=== PATIENT | female | born 1990 | race Caucasian/White ===

== ENCOUNTER → 2018-04-22 | Outpatient (CLI) | payer MEDICAID ==
[~2018-04-22] MED LIST: AMPICILLIN 1 GM/NS (PMX) 50 ML IV; BUTORPHANOL 2 MG INJ IV; CARBOPROST 250 MCG INJ IM; IBUPROFEN 600 MG TAB PO; LACTATED RINGER'S 1,000 ML IV; LIDOCAINE 1% (MPF) 30 ML INJ INJ; METHYLERGONOVINE 0.2 MG INJ IM; MISOPROSTOL 200 MCG TAB PR; OXYTOCIN 30 UNITS/LR 500 ML IV
[2018-04-22] MEDS: LACTATED RINGER'S 1,000 ML IV* (21:39)
[2018-04-22] MEDS: AMPICILLIN 2 GM/NS (PMX) 100 ML IV (21:39)
[2018-04-22 21:59] LABS: ABNORMAL IP MESSAGE 1; ADD MAN DIFF? NO; BASOPHILS % 0.3 % (0.0-2.0); EOSINOPHILS # 0.1 10^3/ul (0.0-0.5); HEMATOCRIT 35.6 % (37.0-47.0); HEMOGLOBIN 11.9 g/dl (12.0-16.0); LYMPHOCYTES # 2.9 10^3/ul (0.8-2.9); LYMPHOCYTES % 29.7 % (15.0-51.0); MEAN CORPUSCULAR HEMOGLOBIN 30.7 pg (29.0-33.0); MEAN CORPUSCULAR HGB CONC 33.4 g/dl (32.0-37.0); MEAN CORPUSCULAR VOLUME 91.8 fl (82.0-101.0); MONOCYTES % 10.4 % (0.0-11.0); NEUTROPHIL # 5.7 10^3/ul (1.6-7.5); PLATELET COUNT 119 10^3/UL (140-415); RED BLOOD COUNT 3.88 10^6/ul (4.20-5.40); RED CELL DISTRIBUTION WIDTH 12.6 % (11.5-14.5)
[2018-04-22 21:59] LABS: WHITE BLOOD COUNT 9.9 10^3/ul (4.8-10.8)
[2018-04-22 22:02] LABS: MEAN PLATELET VOLUME 13.3 fl (7.4-10.4); POSITIVE DIFF @See below
[2018-04-22 22:32] LABS: INR 0.85; PROTIME 11.7 Sec (11.9-14.9); PT RATIO 0.9
[2018-04-22 22:33] LABS: PARTIAL THROMBOPLASTIN TIME 24.4 Sec (23.0-35.0)
[2018-04-22 22:50] LABS: HEPATITIS B SURFACE ANTIGEN NEGATIVE (NEGATIVE)
[2018-04-23] MEDS: LACTATED RINGER'S 1,000 ML IV* ×2 (05:50→13:55)
[2018-04-23 14:59] LABS: RAPID PLASMA REAGIN NONREACTIVE (NR)
== END | disposition home or self-care (01) ==
LOC: OBT 16:32 → L-D 16:35 → OBT 21:19 → L-D 21:20
DX: O47.1 False labor at or after 37 completed weeks of gestation (principal); Z3A.38 38 weeks gestation of pregnancy
CPT/HCPCS: 76818; 85025; 85610; 85730; 86592; 86850; 86900; 86901; 87340

== ENCOUNTER 2018-05-02 03:35 | Inpatient (IN) | payer MEDICAID ==
[2018-05-02] MEDS ORDERED: LIDOCAINE 0.5% (SDV) 50 ML INJ (03:44)
[2018-05-02] MEDS ORDERED: OXYTOCIN 30 UNITS/LR 500 ML IV ×3 (04:00→04:30)
[2018-05-02] MEDS ORDERED: LIDOCAINE 1% (MPF) 30 ML INJ INJ (04:00)
[2018-05-02] MEDS ORDERED: METHYLERGONOVINE 0.2 MG INJ IM ×2 (04:00→04:30)
[2018-05-02] MEDS ORDERED: MISOPROSTOL 200 MCG TAB PR ×2 (04:00→04:30)
[2018-05-02] MEDS ORDERED: CARBOPROST 250 MCG INJ IM ×2 (04:00→04:30)
[2018-05-02] MEDS ORDERED: LACTATED RINGER'S 1,000 ML IV* (04:07)
[2018-05-02] MEDS: LACTATED RINGER'S 1,000 ML IV* ×2 (04:15→20:00)
[2018-05-02] MEDS: OXYTOCIN 30 UNITS/LR 500 ML IV ×2 (04:18→04:19)
[2018-05-02] MEDS ORDERED: MAGNESIUM HYDROXIDE 30ML CUP PO (04:30)
[2018-05-02] MEDS ORDERED: LANOLIN 7 GM TUBE TOP (04:30)
[2018-05-02] MEDS ORDERED: ONDANSETRON 4 MG INJ IV (04:30)
[2018-05-02] MEDS ORDERED: ACETAMINOPHEN 325 MG TAB PO ×2 (04:30)
[2018-05-02] MEDS ORDERED: DIBUCAINE 1% 30 GM OINT PR (04:30)
[2018-05-02 04:55] LABS: ADD MAN DIFF? NO
[2018-05-02 05:06] LABS: BASOPHIL # 0.1 10^3/ul (0.0-0.1); BASOPHILS % 0.5 % (0.0-2.0); EOSINOPHILS # 0.1 10^3/ul (0.0-0.5); EOSINOPHILS % 0.7 % (0.0-7.0); HEMATOCRIT 37.4 % (37.0-47.0); HEMOGLOBIN 12.6 g/dl (12.0-16.0); LYMPHOCYTES # 4.9 10^3/ul (0.8-2.9); MEAN CORPUSCULAR HEMOGLOBIN 30.7 pg (29.0-33.0); MEAN CORPUSCULAR HGB CONC 33.7 g/dl (32.0-37.0); MONOCYTE # 0.9 10^3/ul (0.3-0.9); MONOCYTES % 6.5 % (0.0-11.0); NEUTROPHIL # 7.5 10^3/ul (1.6-7.5); NEUTROPHILS % 54.8 % (39.0-77.0); PLATELET COUNT 134 10^3/UL (140-415); RED BLOOD COUNT 4.11 10^6/ul (4.20-5.40); RED CELL DISTRIBUTION WIDTH 12.7 % (11.5-14.5)
[2018-05-02 05:06] LABS: WHITE BLOOD COUNT 13.7 10^3/ul (4.8-10.8)
[2018-05-02 05:26] LABS: INR 0.91; PROTIME 12.3 Sec (11.9-14.9)
[2018-05-02 05:27] LABS: PARTIAL THROMBOPLASTIN TIME 23.6 Sec (23.0-35.0)
[2018-05-02 06:08] LABS: HEPATITIS B SURFACE ANTIGEN NEGATIVE (NEGATIVE)
[2018-05-02] MEDS: IBUPROFEN 600 MG TAB PO ×3 (07:07→23:46)
[2018-05-02] MEDS: BENZOCAINE 20% 56 ML SPRAY TOP (13:14)
[2018-05-02] MEDS: WITCH HAZEL/GLYCERIN PAD PR (13:14)
[2018-05-02 16:31] LABS: RAPID PLASMA REAGIN NONREACTIVE (NR)
[2018-05-02] MEDS: SENNA/DOCUSATE NA (8.6MG/50MG) TAB PO (23:46)
[2018-05-03] MEDS: LACTATED RINGER'S 1,000 ML IV* (04:00)
[2018-05-03 08:29] LABS: ADD MAN DIFF? NO
[2018-05-03 08:35] LABS: BASOPHILS % 0.4 % (0.0-2.0); EOSINOPHILS # 0.1 10^3/ul (0.0-0.5); EOSINOPHILS % 1.6 % (0.0-7.0); HEMATOCRIT 31.8 % (37.0-47.0); HEMOGLOBIN 10.6 g/dl (12.0-16.0); LYMPHOCYTES # 2.2 10^3/ul (0.8-2.9); MEAN CORPUSCULAR HEMOGLOBIN 30.8 pg (29.0-33.0); MEAN CORPUSCULAR HGB CONC 33.3 g/dl (32.0-37.0); MEAN CORPUSCULAR VOLUME 92.4 fl (82.0-101.0); MEAN PLATELET VOLUME 12.9 fl (7.4-10.4); MONOCYTE # 0.7 10^3/ul (0.3-0.9); MONOCYTES % 7.5 % (0.0-11.0); NEUTROPHIL # 5.8 10^3/ul (1.6-7.5); NEUTROPHILS % 64.8 % (39.0-77.0); PLATELET COUNT 100 10^3/UL (140-415); RED BLOOD COUNT 3.44 10^6/ul (4.20-5.40); RED CELL DISTRIBUTION WIDTH 12.9 % (11.5-14.5)
[2018-05-03] MEDS: SENNA/DOCUSATE NA (8.6MG/50MG) TAB PO (09:05)
[2018-05-04] MEDS: IBUPROFEN 600 MG TAB PO (01:05)
== END 2018-05-04 13:05 | disposition home or self-care (01) | DRG 807 ==
LOC: L-D 03:35 → PP1 05:44
PROVIDERS: Obstetrics & Gynecology
PROC: 10E0XZZ Delivery of Products of Conception, External Approach (ICD-10-PCS; principal; 2018-05-02)
PROC: 4A1HXCZ Monitoring of Products of Conception, Cardiac Rate, External Approach (ICD-10-PCS; 2018-05-02)
DX: O80 Encounter for full-term uncomplicated delivery (principal); Z37.0 Single live birth; Z3A.39 39 weeks gestation of pregnancy
CPT/HCPCS: 85025; 85610; 85730; 86592; 86850; 86900; 86901; 87340